=== PATIENT | male | born 1990 | race Caucasian/White ===

== ENCOUNTER → 2017-04-26 | Outpatient (CLI) | payer OTHER ==
[~2017-04-26] MED LIST: NOMEDS XX; ZOFRAN ODT4 MG PO
[2017-04-26 13:49] LABS: BUN 17 mg/dL (7-18)
[2017-04-26 13:57] LABS: GFR (ESTIMATED) 81 ML/MIN (>60)
[2017-04-27 10:39] LABS: HBsAg Screen Negative (Negative); Hep A Ab, IgM Negative (Negative); Hep B Core Ab, IgM Negative (Negative); Hep C Virus Ab <0.1 (0.0-0.9)
[2017-04-27 16:41] LABS: Antinuclear Antibodies, IFA Negative (.); Mitochondrial (M2) Antibody <20.0 Units (0.0-20.0)
== END ==
LOC: CARL-LAB 09:17
PROVIDERS: Internal Medicine Adolescent Medicine
DX: E80.6 Other disorders of bilirubin metabolism (principal)

== ENCOUNTER 2017-05-02 18:52 | Emergency (ER) | payer OTHER ==
[~2017-05-02] VITALS: Ht 185.4 cm; Wt 113.4 kg
[~2017-05-02 18:52] MED LIST changes: -NOMEDS XX
[2017-05-02] MEDS ORDERED: NOMEDS XX (18:57)
[2017-05-02 19:19] LABS: HEMOGLOBIN 16.8 g/dL (14.1-18.0); LYMPH # 3.6 K/mm3 (0.7-4.5); LYMPH % 38.2 % (10-50)
[2017-05-02 19:33] LABS: BUN 12 mg/dL (7-18)
[2017-05-02 19:35] LABS: GFR (ESTIMATED) 81 ML/MIN (>60)
--- NOTE | 2017-05-02 19:39 | Emergency Room Report ---
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 N Clinical Suspician of Infection? N Mental Status: 1 - Regular (Normal Baseline) Sepsis Risk:Low Sepsis Risk Have you (or family members/close friends) recently traveled outside the [place]? N If Yes, where/when: Have you had exposure to infectious disease within the past month? TB? Other? Specify: Source patient, RN notes reviewed, family, RN/MD Exam Limitations no limitations Comment This is [facility] 26-year-[facility]. [facility] stated that he LEFT the hospital around 3 PM today, but he developed midsternal chest pain around 6:30 PM, later this evening. Patient is described as squeezing, nonradiating, without any associated shortness of breath or radiation. Patient denies any previous cardiac history, any previous similar episodes in the past. Advised his ERCP was because of a suspicion of possible stone impacted in his CBD. He underwent a dilatation of the sphincter of Oddi, but no stent placement. ALLERGIES Coded Allergies: No Known Allergies (05/02/17) Home Medications Reported Medications No Home Medications (NO HOME MEDICATIONS) 1 EACH XX ONCE (Velma ROJAS,Drew Varela) History Medical History General CAD? No Angina: No NE: No Hypertension? No Hyperlipidemia? No CHF? No DVT? No PE? No COPD? No Asthma? No Anemia? No GERD? No Gastric ulcers? No GI Bleed? No Hernia? No Thyroid Problems? No Hypothyroidism? No CVA? No Seizures? No Diabetes? No Renal Insuffiency? No End Stage Renal Disease? No UTI? No Stones? No BPH? No GB Disease: Yes Nephritic Syndrome? No Asplenia? No Hepatitis? No Sickle Cell Disease? No Arthritis? No Migraines? No Cataracts? No Glaucoma? No MRSA? No HIV? No TB? No Anxiety? No Depression? No Cancer? 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 Social History Smoking Hx Smoker: Never Smoker Tobacco: No Type N/A Are you/the child exposed to second-hand smoke: No Alcohol Alcohol: No (Drew Carreon MD) Review of Systems All Other Systems Reviewed and Negative Cardiovascular chest pain (Drew Carreon MD) Physical Exam Vital Signs Vital Signs Date Time Temp Pulse Resp B/P Pulse O2 O2 Flow FiO2 Ox Delivery Rate 05/02 2148 53 18 139/98 99 05/02 2104 18 05/02 2102 50 14 147/98 99 05/02 2029 57 14 135/57 100 05/02 2020 12 05/02 1936 98.3 65 16 127/76 97 05/02 1853 97.6 62 18 146/86 100 General Appearance normal appearance, WD/WN, mild distress Respiratory Status Yes: trachea midline, chest symmetrical, non tender chest. No: respiratory distress. Lung Sounds bilateral: normal breath sounds, lungs clear. Cardiovascular normal exam, regular rate/rhythm, no peripheral edema, no gallop, no JVD, no murmur, no rub, normal peripheral pulses Peripheral Pulses Pulses normal Yes Gastrointestinal normal bowel sounds, soft, no organomegaly, tenderness (RUQ), no peritoneal signs Extremities non-tender, normal range of motion, normal inspection Neurologic alert, normal exam, oriented x 3 Mental status normal mood/affect Skin intact, normal color, warm/dry (Drew Carreon MD) Medical Decision Making LABS/Meds/Orders Pt receiving controlled substance in ED? No Comment 20:15-plan is to repeat a second cardiac enzyme set in 2 hrs, and re-evaluate the patient after meds. Case d/w Dr Solis, assumed care of this patient at this time. Results/Orders Laboratory Tests 05/02/172113: Troponin I < 0.02 05/02/171954: Urine Color YELLOW, Urine Appearance CLEAR, Urine pH 6.0, Ur Specific [place] 1.015, Urine Protein NEGATIVE, Urine Ketones NEGATIVE, Urine Blood NEGATIVE, Urine Nitrate NEGATIVE, Urine Bilirubin NEGATIVE, Urine Urobilinogen 0.2, Ur Leukocyte Esterase NEGATIVE, Urine RBC NONE, Urine WBC OCC, Ur Squamous Epith Cells 3-5, Urine Bacteria TRACE, Hyaline Casts 3-5, Urine Mucus 4+, Urine Glucose NEGATIVE 05/02/17 1900: B-Natriuretic Peptide 8, Amylase 57 05/02/17 1900: Sodium 139, Potassium 3.6, Chloride 103, Carbon Dioxide 25, BUN 12, Creatinine 1.1, Estimated Creat Clear 163, Estimated GFR (MDRD) 81, Glucose 94, Calcium 9.2 , Total Bilirubin 2.0 H, AST 46 H, ALT 110 H, Alkaline Phosphatase 76, Troponin I < 0.02, Total Protein 8.1, Albumin 4.2, Globulin 3.9 H, Albumin/ Globulin Ratio 1.1, Lipase 119, WBC 9.5, RBC 5.77, Hgb 16.8, Hct 48.0, MCV 83.2, RDW 12.5, Plt Count 346, MPV 8.6, Gran % 51.4, Gran # 4.9, Lymphocytes % 38.2, Monocytes % 6.9, Eosinophils % 3.1, Basophils % 0.4, Lymphocytes # 3.6, Monocytes # 0.7, Eosinophils # 0.3, Basophils # 0.0, PUBS MCHC 35.1, MCH 29.2 Current Medication Orders Sig/Nicki Start time Last Medication Dose Route Stop Time Status Admin Lorazepam 0 .STK-MED ONE 05/02 2102 DC .ROUTE Lorazepam 0.5 MG ONCE ONE 05/02 2100 DC 05/02 IV 05/02 2101 210 Ondansetron HCl 0 .STK-MED ONE 05/02 2019 DC .ROUTE Morphine Sulfate 0 .STK-MED ONE 05/02 2018 DC .ROUTE Morphine Sulfate 6 MG ONCE ONE 05/02 2015 DC 05/02 IV 05/02 Multi-Ingredient GI 60 ML ONCE ONE 05/02 2015 DC 05/02 Drug PO 05/02 Ondansetron HCl 4 MG ONCE ONE 05/02 2015 DC 05/02 IV 05/02 Pantoprazole Sodium 40 MG ONCE ONE 05/02 2015 DC 05/02 IV 05/02 Sodium Chloride 10 ML ONCE ONE 05/02 2015 DC IV 05/02 2016 Multi-Ingredient GI 0 .STK-MED ONE 05/02 2014 DC Drug PO Pantoprazole Sodium 0 .STK-MED ONE 05/02 2014 DC IV Sodium Chloride 10 ML PRN PRN 05/02 190 AC IV 05/03 1859 Orders Procedure Date/time Status DIET-NOTHING BY MOUTH 05/03 B Active TROPONIN I 05/02 2056 Complete BRAIN NATRIURETIC PEPTIDE 05/02 1938 Complete AMYLASE 05/[address] ABD & PELVIS W/O CONTRAST 05/[address] ABD/PELVIS REQ 05/02 1900 Complete IV SALINE LOCK 05/02 1900 Active URINALYSIS/COMPLETE 05/02 1900 Complete TROPONIN I 05/02 1900 Complete LIPASE 05/02 1900 Complete CBC WITH AUTO DIFF 05/02 1900 Complete CHEM 12 PROFILE 05/02 1900 Complete CM/EKG CM/phototypesetting equipment monitor Rhythm Normal Sinus Rhythm Rate 88 Ectopy No Comments no acute ischemic changes EKG rate, NSR, rhythm, no evid. of ischemic chgs, no ectopy, normal QRS, normal WV, normal EKG, no EKG for comparison, non-spec. ST/Twave chgs, ST elevation, ST depression, LBBB, RBBB, ectopy, abnormal Q waves XRAY/CT/US XRAY/CT/US 1 XRAY chest XR interpretation by reviewed by me Xray Results no infiltrates, normal heart size, normal lung inflation arsenio XRAY/CT/US 2 CT abdomen, pelvis CT interpretation by discussed w/radiologist CT Results see radiologist's report (Drew Carreon MD) Departure Departure Time of Disposition 2014 Clinical Impression Primary Impression: Chest pain Qualifiers: Chest pain type: unspecified Qualified Code: R07.9 - Chest pain, unspecified Condition STABLE ED Critical Care Critical Care No (Drew Carreon MD) Departure Disposition DC Home or Self Care(routine) Referrals ARIC POSEY Patient Instructions DI for Endoscopic Retrograde Cholangiopancreatography Additional Instructions please call pcp and dr posey in am Discharge Counseling Counseled pt/family regarding diagnosis, test results, medications/RX, follow up needs (Letitia Solis MD) at 2018 at 2153
[2017-05-02 20:01] LABS: URINE BILIRUBIN - DIPSTICK NEGATIVE (NEG); URINE BLOOD NEGATIVE (NEG)
--- NOTE | 2017-05-02 20:45 | RADIOLOGY REPORT PS360 ---
CHEST(2 VIEWS-NOT PORTABLE) HISTORY: Chest pain RUQ ORDERING PHYSICIAN: Drew Carreon MD PATIENT AGE: 26 years COMPARISON: None available FINDINGS: The cardiomediastinal silhouette and pulmonary vascularity are within normal limits. The lungs are clear without infiltrates, suspicious nodules, or pleural effusions. No acute bony abnormalities. IMPRESSION: Negative chest, no acute finding
[2017-05-02 22:19] VITALS: BP 123/67
--- NOTE | 2017-05-03 07:05 | RADIOLOGY REPORT PS360 ---
CT ABD PELVIS W/O CONTRAST CLINICAL INDICATION: Right upper quadrant pain and tenderness. Status post endoscopy RUQ PAIN ORDERING PHYSICIAN: Drew Carreon MD PATIENT AGE: 26 years COMPARISON: 04/25/2017 TECHNIQUE: Axial images obtained with sagittal and coronal reformats. PROCEDURE: Oral Contrast: None IV Contrast: None . FINDINGS: Lung bases are clear. There is diffuse hepatic steatosis. Prior cholecystectomy. No biliary dilatation. Borderline splenomegaly at 14 cm. The adrenal glands, pancreas, kidneys, ureters, and urinary bladder have an unremarkable unenhanced appearance. No evidence of appendicitis, diverticulitis, intestinal obstruction, or free air. No acute bony anomalies. IMPRESSION: No change with no acute finding. Hepatic steatosis with borderline splenomegaly
== END 2017-05-02 22:19 | disposition home or self-care (01) ==
LOC: ER 18:52
PROVIDERS: Emergency Medicine
DX: R07.9 Chest pain, unspecified (principal)
CPT/HCPCS: J2405